=== PATIENT | male | born 2000 | race Caucasian/White ===

== ENCOUNTER 2018-12-27 17:49 | Inpatient (IN) | payer OTHER ==
[~2018-12-27] VITALS: Ht 177.8 cm; Wt 70.7 kg
[2018-12-27 17:55] VITALS: BP 158/67
[2018-12-27] MEDS ORDERED: NOHOMEMEDICATIONS (19:05)
[2018-12-27 19:31] LABS: ABSOLUTE NEUTROPHILS 8.8 thou/uL (1.4-8.2); BASOPHILS 0.3 % (0.0-2.0); EOSINOPHILS 0.6 % (0.0-3.0); HEMATOCRIT 44.7 % (42.0-52.0); HEMOGLOBIN 15.5 gm/dL (14.0-18.0); LYMPHOCYTES 14.4 % (24.0-44.0); MCH 29.3 pg (26.0-34.0); MCHC 34.6 g/dL (28.0-37.0); MCV 84.9 fL (80.0-100.0); MONOCYTES 9.3 % (1.0-8.0); PLATELET COUNT 243 thou/uL (150-400); POLYS 75.4 % (36.0-66.0); RBC 5.27 mil/uL (4.50-6.00); WBC 11.7 thou/uL (4.0-11.0)
[2018-12-27 19:44] LABS: ANION GAP 15 mmol/L (7-16); BUN 7 mg/dL (7-18); CALCIUM 7.7 mg/dL (8.5-10.1); CHLORIDE 107 mmol/L (98-107); CO2 19 mmol/L (21-32); CREATININE 0.9 mg/dL (0.7-1.3); GLUCOSE 92 mg/dL (74-106); MAGNESIUM 1.4 mg/dL (1.8-2.4); SODIUM 141 mmol/L (136-145); TROPONIN-I <0.06 ng/mL (<0.06)
[2018-12-27 19:55] LABS: POTASSIUM 2.2 mmol/L (3.5-5.1)
[2018-12-27 21:19] VITALS: BP 122/74
[2018-12-27 22:15] VITALS: BP 124/76
[2018-12-28 04:30] VITALS: BP 118/80
--- NOTE | 2018-12-28 05:24 | NUR ---
PT WAS AN ER ADMIT @ 2215 WITH NO SIGN OF DISTRESS NOTED. PT IS ALERT AND ORIENTED. PT WAS ADMITTED WITH DIZZINESS, WEAKNESS AND HYPOKALEMIA WITH POTASSIUM AND MAGNESIUM REPLACEMENT ADMINISTERED TO PT. ADMISSION ASSESSMENT AND EDUCATION COMPLETED. POLICY ON TELEMENTRY INTERENCE DISSCUSSED WITH PATIENT AND PATIENT VERBALIZED UNDERSTANDING. PT IS STABLE. PT IS BRADYCARDIC ON THE MONITOR. DENIES ANY PAIN. DENIES ANY FUTHER NEEDS AT THIS TIME.
[2018-12-28 05:35] LABS: HEMOGLOBIN 15.3 gm/dL (14.0-18.0); MCH 29.3 pg (26.0-34.0); MCHC 34.1 g/dL (28.0-37.0); RBC 5.23 mil/uL (4.50-6.00); RDW 13.3 % (10.5-14.5); WBC 8.4 thou/uL (4.0-11.0)
[2018-12-28 05:46] LABS: POTASSIUM 4.3 mmol/L (3.5-5.1)
[2018-12-28 07:19] VITALS: BP 114/66
[2018-12-28] MEDS ORDERED: PEDIALYTE ADV1000 ML PO (08:17)
[2018-12-28 08:55] VITALS: BP 114/66
[2018-12-28 09:01] VITALS: BP 114/66
--- NOTE | 2018-12-28 09:53 | NUR ---
ASSUMED CARE OF PT AT 0700. ASSESSMENT CHARTED. A&O,X4. DENIES PAIN OR SOA. ROOM AIR. NSR. VSS. SKIN INTACT. DENIES CONCERNS. NEW DISCHARGE ORDERS. D/C INFORMATION GIVEN TO PT AND SO AT BEDSIDE. NEW SCRIPTS GIVEN. IV REMOVED PRIOR TO LEAVING, NO BLEEDING NOTED. STATES UNDERSTANDING. PT DRESSED IN PERSONAL CLOTHES AND HAS ALL BELONGINGS. PT REFUSED WHEELCHAIR ESCORT. PT LEFT WITH S.O. AT 0945.
--- NOTE | 2018-12-29 08:13 | EKG ---
[address] [address] ELECTROCARDIOGRAM REPORT Name: LAMAR GRANDENCER Room #: 200-I [facility] M.R.#: [id number] ������������������ Admission: 12/27/18 ������������������ Attend Phys: Bonifacio Smith MD Discharge: 12/28/18 ������������������ Date of : [birth year] Report #: [id number] ����������������������������������������������������������������� [id number] THIS REPORT FOR: //name// [facility] ED Test Date: 2018-12-27 Test Time: 18:39:33 Pat Name: ENEDINA GRANDE Department: Room: [facility] Gender: M [employer] Machine Operator: FRANCISCO : 2000 Requested By: Bert Delgado Order Number: [id number] MD: Shaun Smith Measurements Intervals [place] Rate: 74 P: 70 AK: 130 QRS: 72 QRSD: 102 T: 33 QT: 417 QTc: 463 Interpretive Statements Sinus arrhythmia Probable left atrial enlargement Nonspecific ST segment abnormalities No previous ECG available for comparison Electronically Signed On 12-29-2018 8:13:32 CDT by Shaun Smith [email or web address] ��������������������������������������������� <ELECTRONICALLY SIGNED> ���������������������������������������� By: Shaun Smith MD ��������������������������������������������� 12/29/18 0813 1839 1839 Shaun Smith MD /JEFF
== END 2018-12-28 09:47 | disposition home or self-care (01) | DRG 641 ==
LOC: ER 17:49 → EROBS 20:16 → 2N 21:25
PROVIDERS: Emergency Medicine; Nurse Practitioner Family; ADMIT Hospitalist
DX: E87.6 Hypokalemia (principal); E83.42 Hypomagnesemia; E86.0 Dehydration; F17.210 Nicotine dependence, cigarettes, uncomplicated
CPT/HCPCS: 10081